=== PATIENT | female | born 1995 | race Caucasian/White ===

== ENCOUNTER 2023-08-12 06:00 | Inpatient (IN) | payer BC ==
[2023-08-12] MEDS ORDERED: METHYLERGONOVINE 0.2 MG/ML 1 ML AMP IM PRN (17:17)
[2023-08-12] MEDS ORDERED: TERBUTALINE 1 MG/ML VIAL SQ PRN (17:17)
[2023-08-12] MEDS ORDERED: CARBOPROST TROMETHAMINE 250 MCG/ML 1 ML AMP IM PRN (17:17)
[2023-08-12] MEDS ORDERED: miSOPROStoL 200 MCG TAB PO PRN (17:17)
[2023-08-12] MEDS ORDERED: OXYTOCIN 10 UNIT/ML 1 ML VIAL IM PRN (17:17)
[2023-08-12] MEDS ORDERED: TRANEXAMIC 1,000 MG/100ML-NACL 1,000 MG in EMPTY BAG 1 BAG IV PRN (17:17)
[2023-08-12] MEDS ORDERED: LIDOCAINE 0.5% (PF) 5 MG/ML (50 ML SDV) SQ PRN (17:17)
[2023-08-12] MEDS: DINOPROSTONE 10 MG INSERT.ER VAGINAL ONE (17:31)
[2023-08-12 18:37] LABS: Basophils % (A) 0 %; Eosinophils # (A) 0.1 k/uL (0-0.7); Eosinophils % (A) 1 %; HCT 35.8 % (34.0-46.0); HGB 12.5 gm/dL (11.4-16.0); Lymphocytes # (A) 2.9 k/uL (1.0-4.8); Lymphocytes % (A) 24 %; MCH 32.1 pg (25.0-35.0); MCHC 34.9 g/dL (31.0-37.0); MCV 92.2 fL (80.0-100.0); Mean Platelet Volume 9.4; Monocytes # (A) 0.6 k/uL (0-1.0); Monocytes % (A) 5 %; Neutrophils # (A) 8.3 k/uL (1.3-7.7); Neutrophils % (A) 68 %; Platelet Count 223 k/uL (150-450); RBC 3.89 m/uL (3.80-5.40); WBC 12.1 k/uL (3.8-10.6)
[2023-08-12] MEDS: LACTATED RINGERS 1,000 ML IV SCH (19:00)
[2023-08-13] MEDS: OXYTOCIN 30 UNITS/500 ML NS 30 UNIT in SALINE 1 500ML.BAG IV SCH (05:45)
[2023-08-13] MEDS: NALBUPHINE 10 MG/ML (10 ML MDV) IV PRN (12:13)
[2023-08-13] MEDS ORDERED: TRANEXAMIC 1,000 MG/100ML-NACL 1,000 MG in EMPTY BAG 1 BAG IV PRN (18:51)
[2023-08-13] MEDS ORDERED: OXYTOCIN 10 UNIT/ML 1 ML VIAL IM PRN (18:51)
[2023-08-13] MEDS ORDERED: METHYLERGONOVINE 0.2 MG/ML 1 ML AMP IM PRN (18:51)
[2023-08-13] MEDS ORDERED: CARBOPROST TROMETHAMINE 250 MCG/ML 1 ML AMP IM PRN (18:51)
[2023-08-13] MEDS ORDERED: miSOPROStoL 200 MCG TAB PO PRN (18:51)
[2023-08-13] MEDS ORDERED: OXYTOCIN 30 UNITS/500 ML NS 30 UNIT in SALINE 1 500ML.BAG IV SCH ×2 (19:00→20:04)
[2023-08-13] MEDS ORDERED: OXYTOCIN 30 UNITS/500 ML NS BAG IV ONE (19:15)
[2023-08-13] MEDS ORDERED: DEXAMETHASONE SOD PHOSPHATE 4 MG/ML 1 ML VIAL ONE (19:15)
[2023-08-13] MEDS ORDERED: ONDANSETRON 4 MG/2 ML VIAL ONE (19:15)
[2023-08-13] MEDS ORDERED: MORPHINE SULFATE (PF) 0.3 MG/0.3 ML SYR ONE (19:15)
[2023-08-13] MEDS: CITRIC ACID-SODIUM CITRATE 15 ML CUP PO ONE (19:15)
--- NOTE | 2023-08-13 20:03 | P.HPOB ---
History of Present Illness H&P Date: 08/12/23 Chief Complaint: IUP @ 40 0/7 This is a 27-year-old 1 para 0 at 40-0/7 weeks that presents for induction of labor. Patient was seen today for routine visit ultrasound was performed revealing an estimated weight of 8 pounds 5 ounces normal amniotic fluid index was appreciated fetus in a vertex presentation. Patient has noted some occasional contractions. Plan of care going forward was discussed and patient decided she would like to proceed with induction of labor. Cervix was noted to be fingertip 50-3 station therefore she was counseled on Cervidil induction of labor. care has been essentially uncomplicated. Review of Systems Constitutional: Denies chills, Denies fatigue, Denies fever Ears, nose, mouth and throat: Denies headache Cardiovascular: Reports leg edema Respiratory: Denies dyspnea Gastrointestinal: Denies constipation, Denies diarrhea, Denies nausea, Denies vomiting Genitourinary: Reports Past Medical History Past Medical History: No Reported History History of Any Multi-Drug Resistant Organisms: None Reported Additional Past Surgical History / Comment(s): right wrist orif, left ankle orif Past Anesthesia/Blood Transfusion Reactions: No Reported Reaction Past Psychological History: No Psychological Hx Reported Smoking Status: Never smoker Past Alcohol Use History: None Reported Past Drug Use History: None Reported Medications and Allergies Home Medications Medication Instructions Recorded Confirmed Type Vit No.179/Iron/Folic 1 each PO DAILY 08/12/23 08/12/23 History [ Tablet] Allergies Allergy/AdvReac Type Severity Reaction Status Date / Time No Known Allergies Allergy Verified 08/12/23 17:15 Exam Osteopathic Statement: *. No significant issues noted on an osteopathic structural exam other than those noted in the History and Physical/Consult. Vital Signs Temp Pulse Resp BP Pulse Ox 08/12/23 17:13 97.6 F 84 16 119/72 97 Intake and Output 08/12/23 08/12/23 08/12/23 06:59 14:59 22:59 Other: Weight 97.069 kg Targeted physical exam is performed this date General is well-nourished well- developed female in no acute distress, breathing is noted to be nonlabored, heart has a regular rate and rhythm, abdomen is gravid and appropriate for gestational age, on cervical exam she is fingertip/50/-3 station Cervidil is placed without difficulty heart tones are noted to be category 1 and she is not hortensia. Assessment and Plan (1) Term Current Visit: Yes Status: Acute Code(s): Z34.90 - ENCNTR FOR SUPRVSN OF NORMAL , UNSP, UNSP TRIMESTER SNOMED Code(s): 81601356 Plan: 27-year-old G1, P0 at 40-0/7 weeks presents for induction of labor. Cervidil induction of labor is begun, options for analgesia are discussed including Nubain, nitrous, epidural should she go into active labor through the night. All questions are answered on plan of care, she states understanding.
--- NOTE | 2023-08-13 20:03 | P.OP ---
Date of Procedure: 08/13/23 Preoperative Diagnosis: IUP @ 401/7 weeks, maternal request arrest of dilation x 24 hours Postoperative Diagnosis: same Procedure(s) Performed: Primary low-transverse section Anesthesia: spinal Surgeon: Toña Bui Embalmer/Funeral Director #1: Daryl Perry Estimated Blood Loss (ml): 718 IV fluids (ml): 1,100 Urine output (ml): 25 Pathology: none sent Indications for Procedure: 27-year-old G1, P0 that presented to labor and delivery last evening at 40-1/7 weeks for induction of labor. Patient was noted to be 1 cm at the time and Cervidil was placed. Patient noted mild contractions through the night Cervidil was removed this morning with no cervical change appreciated. Patient was examined this morning and amniotomy was performed with clear fluid obtained. Patient progressed through the day with Pitocin augmentation of labor. No cervical change was appreciated by 1845. Patient was counseled on options of continuing through as heart tones were noted to be category 1 versus proceeding with primary given no cervical pattern changer and repairer the last 24 hours. Patient stated she would like to proceed with primary . Questions were answered. Risks were reviewed. Patient stated understanding anesthesia was notified and patient was taken back to the operating suite. Operative Findings: Viable female infant delivered at 1937, weight of 7 pounds 12 ounces, Apgars of 9 and 9 at 1 and 5 minutes respectively. Arcuate shaped uterus with the right horn larger than the left. Normal ovaries bilaterally. Description of Procedure: The patient was prepped and draped in the usual fashion after spinal anesthesia was administered by the anesthesia department. A Pfannenstiel incision was made and extended of the abdominal cavity without difficulty. The bladder peritoneum was elevated and incised and reflected distally. A 2 cm incision was made in the transverse plane of the lower uterine segment to enter the uterus at which time clear fluid was noted. The incision was extended in both directions bluntly. The head was encountered within the field and delivered up and through the incision where the nose and mouth were thoroughly suctioned. Remainder of the was delivered onto the surgical field where the cord was doubly clamped, cut, and the was passed for resuscitative measures with weight and Apgars as noted above. The placenta was delivered manually, intact, and was grossly normal with a grossly normal three-vessel cord. The uterus was exteriorized and the interior cavity of the uterus swept of any remaining placental and membranous fragments with a laparotomy sponge. The margins of the incision were grasped with Allis clamps and the incision closed in 2 layers. First layer was a running locking layer of 0 Vicryl from margin to margin followed by a second layer of imbricating 0 Vicryl from margin to margin. Any small points of bleeding were then made hemostatic with the Bovie. Once hemostasis was achieved, the posterior cul-de-sac was suctioned with a guard and the uterine and ovarian findings are as noted above. The uterus was replaced within the abdominal cavity and the gutters swept of any remaining blood fluid or clot. The incision was again reexamined and hemostasis was noted to be excellent. Any small point of bleeding were made hemostatic with the Bovie. Once hemostasis was achieved the parietal peritoneum was loosely reapproximated. The layer of muscles were examined and made hemostatic with the Bovie. Attention was then turned to the fascia which was closed with 2 running stitches of 0 Vicryl proceeding from the lateral margins to the midpoint. The subcutaneous tissues were irrigated, made hemostatic with the Bovie, and reapproximated with a running stitch of 30 Vicryl. The skin was reapproximated with 4-0 Vicryl. Estimated blood loss for the case was approximately 718 mL. All sponge instrument and needle counts are correct. There were no complications. The patient tolerated the procedure well and proceeded to the recovery room in stable condition. Both mother and are resting comfortably in recovery.
[2023-08-13] MEDS ORDERED: NALOXONE 0.4 MG/ML 1 ML VIAL IV PRN ×2 (20:04→21:12)
[2023-08-13] MEDS ORDERED: ZOLPIDEM 5 MG TAB PO PRN (20:04)
[2023-08-13] MEDS ORDERED: diphenhydrAMINE 50 MG CAP PO PRN (20:04)
[2023-08-13] MEDS ORDERED: METOCLOPRAMIDE 5 MG/ML 2 ML VIAL IVP PRN (20:04)
[2023-08-13] MEDS ORDERED: diphenhydrAMINE 50 MG/ML 1 ML VIAL IVP PRN ×2 (20:04→21:12)
[2023-08-13] MEDS ORDERED: ONDANSETRON 4 MG/2 ML VIAL IVP PRN ×2 (20:04→21:12)
[2023-08-13] MEDS ORDERED: diphenhydrAMINE 25 MG CAP PO PRN (20:04)
[2023-08-13] MEDS ORDERED: NALBUPHINE 10 MG/ML (10 ML MDV) IV PRN (21:12)
[2023-08-13] MEDS: ACETAMINOPHEN TAB 500 MG TAB PO SCH (22:01)
[2023-08-13] MEDS: SENNOSIDES-DOCUSATE SODIUM 1 EACH TAB PO SCH (22:18)
[2023-08-13] MEDS: LACTATED RINGERS 1,000 ML IV SCH (22:19)
[2023-08-14] MEDS: diphenhydrAMINE 50 MG/ML 1 ML VIAL IVP PRN (00:04)
[2023-08-14] MEDS: IBUPROFEN 600 MG TAB PO SCH (00:57)
[2023-08-14 07:39] LABS: Basophils % (A) 0 %; Eosinophils % (A) 0 %; HCT 34.9 % (34.0-46.0); Lymphocytes # (A) 2.5 k/uL (1.0-4.8); Lymphocytes % (A) 14 %; MCH 32.1 pg (25.0-35.0); MCHC 34.5 g/dL (31.0-37.0); Mean Platelet Volume 9.3; Monocytes # (A) 1.2 k/uL (0-1.0); Monocytes % (A) 7 %; Neutrophils # (A) 13.7 k/uL (1.3-7.7); Neutrophils % (A) 77 %; Platelet Count 217 k/uL (150-450); RBC 3.75 m/uL (3.80-5.40); WBC 17.9 k/uL (3.8-10.6)
--- NOTE | 2023-08-14 07:39 | P.PN ---
Progress Note - Text Progress Note Date: 08/14/23 Ms. Valenzuela is a 27 -year-old female had a history of under spinal kathleen lgesia with Astramorph 300 g for postop pain. Today patient is comfortable sitting in her bed. c/o mlid itching , getting better. Today patient rated her pain level 2 out of 10 in severity. Denied any fever, drowsiness, confusion. Denied any weakness, tingling sensation in her lower extremities. Denied any bowel or bladder problems. Moving all extremities without any difficulty. Able to walk without any difficulties. Vitals: Hemodynamically stable Continue oral pain medication as per primary team.
[2023-08-14] MEDS: PRENATAL VIT-IRON-FOLIC ACID 1 EACH TABLET PO SCH (07:54)
[2023-08-14] MEDS: SIMETHICONE 80 MG CHEWABLE PO PRN (07:55)
--- NOTE | 2023-08-14 12:15 | P.PNOBGPC ---
Subjective - Subjective Principal diagnosis: Postop day 1, primary Interval history: Patient is doing well postoperatively. She is ambulating without difficulty, awaiting spontaneous void. Lochia is minimal. She is breast-feeding without difficulty. Patient reports: Reports appetite normal, Reports pain well controlled, Reports ambulating normally : doing well, nursing well Objective - Vital Signs Latest vital signs: Vital Signs Temp Pulse Resp BP Pulse Ox 08/14/23 11:42 80 20 104/65 96 08/14/23 08:00 97.9 F 71 20 123/70 96 08/14/23 00:00 98.5 F 70 16 124/61 95 08/13/23 22:05 70 16 125/70 99 08/13/23 21:50 68 16 123/71 97 08/13/23 21:35 75 16 122/73 97 08/13/23 21:20 73 16 121/64 96 08/13/23 21:05 72 16 129/69 95 08/13/23 20:50 72 16 119/69 97 08/13/23 20:35 69 16 114/66 100 08/13/23 20:20 83 16 105/65 100 08/13/23 20:05 97.9 F 86 16 102/55 100 Intake and Output 08/13/23 08/14/23 08/14/23 22:59 06:59 14:59 Intake Total 29 360 Output Total 1110 1600 Balance -1081 -1600 360 Intake: Intake, IV Titration 29 Amount Oxytocin 30 Units/500 ml 29 Ns 30 unit In Saline 1 500ml.bag @ Per Protocol IV .Q0M [facility] Rx#:[id number] Oral 360 Output: Urine 250 1600 Estimated Blood Loss 718 Output, Quantitative 142 Blood Loss Other: Voiding Method Indwelling Catheter Indwelling Catheter # Voids 0 - Exam Extremities: Present: normal, edema Abdomen: Present: normal appearance, soft Incision: Present: normal, dry, intact Uterus: Present: normal, firm - Labs Labs: Abnormal Lab Results - Last 24 Hours (Table) 08/14/23 Range/Units 07:16 WBC 17.9 H (3.8-10.6) k/uL RBC 3.75 L (3.80-5.40) m/uL Neutrophils # 13.7 H (1.3-7.7) k/uL Monocytes # 1.2 H (0-1.0) k/uL Assessment and Plan (1) Term Current Visit: Yes Status: Acute Code(s): Z34.90 - ENCNTR FOR SUPRVSN OF NORMAL , UNSP, UNSP TRIMESTER SNOMED Code(s): 18986775 (2) Status post section Current Visit: Yes Status: Acute Code(s): Z98.891 - HISTORY OF UTERINE SCAR FROM PREVIOUS SURGERY SNOMED Code(s): 931294016 Plan: 27-year-old 1 now para 1 status post primary secondary to maternal court request and lack of cervical change or approximately 24 hours. Patient is doing well postoperatively. Awaiting spontaneous void status post Caicedo removal. Pain is well-controlled.
[2023-08-15 09:33] VITALS: BP 120/74; PULSE 75; RESP 16; TEMP 98.2
--- NOTE | 2023-08-15 10:03 | P.DS ---
Providers Date of admission: 08/12/23 17:02 Expected date of discharge: 08/15/23 Attending physician: Toña Bui Primary care physician: Stated None - Discharge Diagnosis(es) (1) Term Current Visit: Yes Status: Acute (2) Status post section Current Visit: Yes Status: Acute Hospital Course: This is a 27-year-old 1 now para 1 that presented to labor and delivery on 08/11 at 40 1/7 weeks for induction of labor. Patient was admitted and Cervidil was placed. Patient only noted mild contractions through the night. The Cervidil was removed and no cervical change was appreciated. Patient was examined in the morning amniotomy was performed and clear fluid was obtained. Patient was begun on Pitocin for augmentation of labor. Patient had no noted cervical change by 1845. Patient was counseled on options of continuing through versus primary . Patient elected primary . For full details on the please see the operative report. Viable female delivered at 1937, weight of 7 pounds 12 ounces, Apgars of 9 and 9 at 1 and 5 minutes respectively. An arcuate shaped uterus was noted, right horn greater than the left. Patient's postoperative course has been uneventful. On this postoperative day #2 she is ambulating and voiding without difficulty. She is tolerating a regular diet without nausea or vomiting. States her pain is well-controlled. She denies concerns. She would like discharge home. Patient Condition at Discharge: Good Plan - Discharge Summary New Discharge Prescriptions: No Action Vit No.179/Iron/Folic [ Tablet] 1 each PO DAILY Discharge Medication List Vit No.179/Iron/Folic [ Tablet] 1 each PO DAILY 08/12/23 [History] Follow up Appointment(s)/Referral(s): Toña Bui DO [Doctor of Osteopathic Medicine] - 2 Weeks Patient Instructions/Handouts: (DC), (GEN) Activity/Diet/Wound Care/Special Instructions: No intercourse, tampons or douching. No heavy lifting greater than a gallon of milk. No driving for two weeks. Call with any fever, shakes or chills, with any pain not alleviated by over the counter meds, or with any quesions or concerns. Discharge Disposition: HOME SELF-CARE
== END 2023-08-15 13:50 | disposition home or self-care (01) | DRG 788 ==
LOC: 4FBP 17:02
PROVIDERS: ADMIT Obstetrics & Gynecology Obstetrics; ATTEND Obstetrics & Gynecology Obstetrics
PROC: 3E0P7VZ Introduction of Hormone into Female Reproductive, Via Natural or Artificial Opening (ICD-10-PCS; 2023-08-12)
PROC: 3E033VJ Introduction of Other Hormone into Peripheral Vein, Percutaneous Approach (ICD-10-PCS; principal; 2023-08-13 06:00)
PROC: 10D00Z1 Extraction of Products of Conception, Low, Open Approach (ICD-10-PCS; principal; 2023-08-13 06:00)
PROC: 10907ZC Drainage of Amniotic Fluid, Therapeutic from Products of Conception, Via Natural or Artificial Opening (ICD-10-PCS; principal; 2023-08-13 06:00)
DX: O62.0 Primary inadequate contractions (principal); O34.03 Maternal care for unspecified congenital malformation of uterus, third trimester; O99.73 Diseases of the skin and subcutaneous tissue complicating the puerperium; L29.9 Pruritus, unspecified; Q51.810 Arcuate uterus; Z28.310 Unvaccinated for COVID-19; Z3A.40 40 weeks gestation of pregnancy; Z37.0 Single live birth
CPT/HCPCS: 85025; 86850; 86900; 86901